=== PATIENT | female | born 1960 | race Caucasian/White ===

== ENCOUNTER 2017-05-04 19:35 | Inpatient (IN) | payer OTHER ==
[2017-05-04 22:10] LABS: ADD MAN DIFF? NO
[2017-05-04 22:13] LABS: BASOPHIL # 0.1 10^3/ul (0.0-0.1); BASOPHILS % 0.5 % (0.0-2.0); EOSINOPHILS # 0.1 10^3/ul (0.0-0.5); EOSINOPHILS % 0.8 % (0.0-7.0); HEMATOCRIT 38.9 % (37.0-47.0); HEMOGLOBIN 13.3 g/dl (12.0-16.0); LYMPHOCYTES % 16.4 % (15.0-51.0); MEAN CORPUSCULAR HEMOGLOBIN 28.1 pg (29.0-33.0); MEAN CORPUSCULAR HGB CONC 34.2 g/dl (32.0-37.0); MEAN CORPUSCULAR VOLUME 82.1 fl (82.0-101.0); MEAN PLATELET VOLUME 10.5 fl (7.4-10.4); MONOCYTES % 7.9 % (0.0-11.0); NEUTROPHIL # 9.1 10^3/ul (1.6-7.5); NEUTROPHILS % 73.7 % (39.0-77.0); PLATELET COUNT 332 10^3/UL (140-415); RED BLOOD COUNT 4.74 10^6/ul (4.20-5.40); RED CELL DISTRIBUTION WIDTH 12.7 % (11.5-14.5)
[2017-05-04 22:13] LABS: WHITE BLOOD COUNT 12.4 10^3/ul (4.8-10.8)
[2017-05-04 22:32] LABS: ALANINE AMINOTRANSFERASE 249 IU/L (13-69); ALBUMIN 4.6 g/dl (3.3-4.9); ALKALINE PHOSPHATASE 332 IU/L (42-121); ASPARTATE AMINO TRANSFERASE 448 IU/L (15-46); BILIRUBIN,INDIRECT 0.1 mg/dl (0-1.1); BILIRUBIN,TOTAL 0.1 mg/dl (0.2-1.3); LIPASE 63 U/L (23-300); TOTAL PROTEIN 7.8 g/dl (6.1-8.1)
[2017-05-04 22:35] LABS: ANION GAP 16 (8-16); BLOOD UREA NITROGEN 15 mg/dl (7-20); CALCIUM 9.8 mg/dl (8.4-10.2); CARBON DIOXIDE 28 mmol/L (21-31); CHLORIDE 102 mmol/L (97-110); CREATININE 0.67 mg/dl (0.44-1.00); GLUCOSE 153 mg/dl (70-220); POTASSIUM 3.6 mmol/L (3.5-5.1); SODIUM 142 mmol/L (135-144)
[2017-05-04] MEDS: LIDOCAINE/MYLANTA 40 ML BTL PO (22:46)
[2017-05-04] MEDS: ASPIRIN 325 MG TAB PO (22:46)
[2017-05-04 22:48] LABS: TROPONIN-I < 0.012 ng/ml (0.00-0.12)
[2017-05-04] MEDS: morphine 4 MG/ML VIAL IV (23:43)
[2017-05-04] MEDS: ONDANSETRON 4 MG INJ IV (23:43)
[2017-05-05] MEDS: metroNIDAZOLE 500 MG/NS (PMX) 100 ML IVPB ×2 (01:14→01:41)
[2017-05-05] MEDS: CEFTRIAXONE 1 GM/50 ML (PMX) 50 ML IVPB (01:15)
[2017-05-05 01:36] LABS: INR 0.95; PROTIME 12.8 Sec (11.9-14.9)
[2017-05-05 01:37] LABS: PARTIAL THROMBOPLASTIN TIME 28.9 Sec (25.0-35.0)
[2017-05-05] MEDS: ONDANSETRON 4 MG INJ IV (01:40)
[2017-05-05] MEDS: METOCLOPRAMIDE 10 MG INJ IV (01:40)
[2017-05-05] MEDS: HYDROmorphONE 0.5 MG/0.5 ML SYG IV (01:40)
[2017-05-05 01:58] LABS: LACTIC ACID 2.3 mmol/L (0.5-2.0)
[2017-05-05] MEDS ORDERED: NACL 0.9% 3 ML SYG IV (02:30)
[2017-05-05] MEDS ORDERED: ONDANSETRON 4 MG INJ IV (02:30)
[2017-05-05 03:01] LABS: LACTIC ACID 2.2 mmol/L (0.5-2.0)
[2017-05-05] MEDS: DEXTROSE 5%-0.45% NACL 1,000 ML IV ×2 (03:07→14:24)
[2017-05-05 04:46] LABS: ADD MAN DIFF? NO
[2017-05-05 04:51] LABS: WHITE BLOOD COUNT 5.8 10^3/ul (4.8-10.8)
[2017-05-05 04:51] LABS: BASOPHILS % 0.5 % (0.0-2.0); EOSINOPHILS % 0.3 % (0.0-7.0); HEMATOCRIT 36.8 % (37.0-47.0); HEMOGLOBIN 12.5 g/dl (12.0-16.0); LYMPHOCYTES # 1.6 10^3/ul (0.8-2.9); LYMPHOCYTES % 27.1 % (15.0-51.0); MEAN CORPUSCULAR VOLUME 82.5 fl (82.0-101.0); MEAN PLATELET VOLUME 10.2 fl (7.4-10.4); MONOCYTE # 0.4 10^3/ul (0.3-0.9); MONOCYTES % 6.7 % (0.0-11.0); NEUTROPHIL # 3.8 10^3/ul (1.6-7.5); NEUTROPHILS % 64.9 % (39.0-77.0); PLATELET COUNT 304 10^3/UL (140-415); RED BLOOD COUNT 4.46 10^6/ul (4.20-5.40); RED CELL DISTRIBUTION WIDTH 12.5 % (11.5-14.5)
[2017-05-05 05:15] LABS: LACTIC ACID 1.9 mmol/L (0.5-2.0)
[2017-05-05 05:24] LABS: ALBUMIN 3.9 g/dl (3.3-4.9); ALBUMIN/GLOBULIN RATIO 1.11; ALKALINE PHOSPHATASE 368 IU/L (42-121); ANION GAP 17 (8-16); BILIRUBIN,INDIRECT 0.3 mg/dl (0-1.1); BILIRUBIN,TOTAL 0.7 mg/dl (0.2-1.3); BLOOD UREA NITROGEN 13 mg/dl (7-20); CALCIUM 9.1 mg/dl (8.4-10.2); CARBON DIOXIDE 26 mmol/L (21-31); CHLORIDE 105 mmol/L (97-110); CREATININE 0.58 mg/dl (0.44-1.00); GLUCOSE 162 mg/dl (70-220); POTASSIUM 3.8 mmol/L (3.5-5.1); SODIUM 144 mmol/L (135-144); TOTAL PROTEIN 7.4 g/dl (6.1-8.1)
[2017-05-05 05:29] LABS: CREATINE KINASE 22 IU/L (23-200)
[2017-05-05 05:30] LABS: CK INDEX 1.7; CK-MB 0.38 ng/ml (0.0-2.4)
[2017-05-05 05:53] LABS: TROPONIN-I < 0.012 ng/ml (0.00-0.12)
[2017-05-05] MEDS: PIPER-TAZO 3.375 GM IV (PMX) 100 ML IVPB ×3 (05:59→18:52)
[2017-05-05 09:39] LABS: ALANINE AMINOTRANSFERASE 1780 IU/L (13-69)
[2017-05-05] MEDS: morphine 2 MG INJ IV ×3 (09:52→18:52)
[2017-05-05 10:31] LABS: CREATINE KINASE 28 IU/L (23-200)
[2017-05-05 10:42] LABS: CK INDEX 1.2; CK-MB 0.34 ng/ml (0.0-2.4); TROPONIN-I < 0.012 ng/ml (0.00-0.12)
[2017-05-05 17:13] LABS: ACETAMINOPHEN < 10.0 ug/ml (10.0-30.0)
[2017-05-05 17:54] LABS: HEPATITIS B SURFACE ANTIBODY POSITIVE (NEGATIVE)
[2017-05-05 19:15] LABS: HEPATITIS B SURFACE ANTIGEN NEGATIVE (NEGATIVE)
[2017-05-05 19:59] LABS: HEPATITIS B CORE ANTIBODY REACTIVE (NEGATIVE); HEPATITIS C VIRAL ANTIBODY NEGATIVE (NEGATIVE)
[2017-05-06] MEDS: DEXTROSE 5%-0.45% NACL 1,000 ML IV ×5 (00:32→23:18)
[2017-05-06] MEDS: PIPER-TAZO 3.375 GM IV (PMX) 100 ML IVPB ×5 (00:32→23:18)
[2017-05-06 05:11] LABS: ADD MAN DIFF? NO; BASOPHILS % 0.8 % (0.0-2.0); EOSINOPHILS # 0.3 10^3/ul (0.0-0.5); EOSINOPHILS % 5.7 % (0.0-7.0); HEMATOCRIT 36.5 % (37.0-47.0); HEMOGLOBIN 12.3 g/dl (12.0-16.0); LYMPHOCYTES # 1.8 10^3/ul (0.8-2.9); LYMPHOCYTES % 36.5 % (15.0-51.0); MEAN CORPUSCULAR HEMOGLOBIN 27.9 pg (29.0-33.0); MEAN CORPUSCULAR HGB CONC 33.7 g/dl (32.0-37.0); MEAN CORPUSCULAR VOLUME 82.8 fl (82.0-101.0); MEAN PLATELET VOLUME 10.1 fl (7.4-10.4); MONOCYTE # 0.4 10^3/ul (0.3-0.9); MONOCYTES % 7.1 % (0.0-11.0); NEUTROPHIL # 2.4 10^3/ul (1.6-7.5); NEUTROPHILS % 49.3 % (39.0-77.0); PLATELET COUNT 296 10^3/UL (140-415); RED BLOOD COUNT 4.41 10^6/ul (4.20-5.40); RED CELL DISTRIBUTION WIDTH 13.1 % (11.5-14.5)
[2017-05-06 05:11] LABS: WHITE BLOOD COUNT 4.9 10^3/ul (4.8-10.8)
[2017-05-06 05:37] LABS: ANION GAP 13 (8-16); BLOOD UREA NITROGEN 6 mg/dl (7-20); CALCIUM 9.3 mg/dl (8.4-10.2); CARBON DIOXIDE 28 mmol/L (21-31); CHLORIDE 106 mmol/L (97-110); CREATININE 0.56 mg/dl (0.44-1.00); GLUCOSE 121 mg/dl (70-220); MAGNESIUM 1.9 mg/dl (1.7-2.5); PHOSPHORUS 3.6 mg/dl (2.5-4.9); POTASSIUM 3.4 mmol/L (3.5-5.1); SODIUM 144 mmol/L (135-144)
[2017-05-06 13:28] LABS: ALBUMIN 3.7 g/dl (3.3-4.9); ALKALINE PHOSPHATASE 399 IU/L (42-121); BILIRUBIN,INDIRECT 0.6 mg/dl (0-1.1); BILIRUBIN,TOTAL 0.6 mg/dl (0.2-1.3); TOTAL PROTEIN 7.2 g/dl (6.1-8.1)
[2017-05-06 13:53] LABS: ALANINE AMINOTRANSFERASE 1329 IU/L (13-69); ASPARTATE AMINO TRANSFERASE 748 IU/L (15-46)
[2017-05-06] MEDS ORDERED: morphine LIQ (10 MG/5 ML) CUP PO (17:00)
[2017-05-07] MEDS: ZOLPIDEM 5 MG TAB PO (01:55)
[2017-05-07 05:38] LABS: ADD MAN DIFF? NO
[2017-05-07] MEDS: PIPER-TAZO 3.375 GM IV (PMX) 100 ML IVPB ×3 (05:43→17:38)
[2017-05-07 05:49] LABS: WHITE BLOOD COUNT 7.1 10^3/ul (4.8-10.8)
[2017-05-07 05:50] LABS: BASOPHIL # 0.1 10^3/ul (0.0-0.1); BASOPHILS % 0.8 % (0.0-2.0); EOSINOPHILS # 0.4 10^3/ul (0.0-0.5); EOSINOPHILS % 5.4 % (0.0-7.0); HEMATOCRIT 35.4 % (37.0-47.0); HEMOGLOBIN 11.9 g/dl (12.0-16.0); LYMPHOCYTES # 2.6 10^3/ul (0.8-2.9); MEAN CORPUSCULAR HGB CONC 33.6 g/dl (32.0-37.0); MEAN CORPUSCULAR VOLUME 83.3 fl (82.0-101.0); MONOCYTE # 0.6 10^3/ul (0.3-0.9); MONOCYTES % 8.2 % (0.0-11.0); NEUTROPHIL # 3.4 10^3/ul (1.6-7.5); NEUTROPHILS % 47.8 % (39.0-77.0); PLATELET COUNT 323 10^3/UL (140-415); RED BLOOD COUNT 4.25 10^6/ul (4.20-5.40); RED CELL DISTRIBUTION WIDTH 13.1 % (11.5-14.5)
[2017-05-07 06:06] LABS: ALANINE AMINOTRANSFERASE 795 IU/L (13-69); ALBUMIN 3.9 g/dl (3.3-4.9); ALKALINE PHOSPHATASE 305 IU/L (42-121); ANION GAP 13 (8-16); ASPARTATE AMINO TRANSFERASE 204 IU/L (15-46); BILIRUBIN,INDIRECT 0.2 mg/dl (0-1.1); BILIRUBIN,TOTAL 0.2 mg/dl (0.2-1.3); BLOOD UREA NITROGEN 5 mg/dl (7-20); CALCIUM 9.3 mg/dl (8.4-10.2); CARBON DIOXIDE 28 mmol/L (21-31); CHLORIDE 106 mmol/L (97-110); CREATININE 0.58 mg/dl (0.44-1.00); GLUCOSE 111 mg/dl (70-220); POTASSIUM 3.4 mmol/L (3.5-5.1); SODIUM 144 mmol/L (135-144); TOTAL PROTEIN 7.1 g/dl (6.1-8.1)
[2017-05-07 06:07] LABS: MAGNESIUM 1.9 mg/dl (1.7-2.5)
[2017-05-07 11:11] LABS: MITOCHONDRIAL TB NEGATIVE (NEGATIVE); SMOOTH MUSCLE AB SCREEN NEGATIVE (NEGATIVE)
[2017-05-07 11:57] LABS: ANA SCREEN NEGATIVE (NEGATIVE)
[2017-05-07] MEDS: DEXTROSE 5%-0.45% NACL 1,000 ML IV (12:03)
[2017-05-07] MEDS: POTASSIUM CHLORIDE (SR) 20 MEQ TAB PO (14:57)
== END 2017-05-07 20:55 | disposition home or self-care (01) | DRG 445 ==
LOC: E/R 19:35 → MS1 05-06 20:45
DX: K80.20 Calculus of gallbladder without cholecystitis without obstruction (principal); B19.10 Unspecified viral hepatitis B without hepatic coma; N20.0 Calculus of kidney; K43.9 Ventral hernia without obstruction or gangrene; K40.90 Unilateral inguinal hernia, without obstruction or gangrene, not specified as recurrent; E66.9 Obesity, unspecified; Z68.32 Body mass index [BMI] 32.0-32.9, adult
CPT/HCPCS: 36415; 71045; 74018; 74176; 74181; 76705; 80048; 80053; 80076; 80306; 82550; 82553; 83605; 83690; 83735; 84100; 84484; 85025; 85610; 85730; 86038; 86255; 86704; 86706; 86709; 86803; 87040; 87086; 87340; 93005; 96374; 96375; 96376; 99291-25

== ENCOUNTER 2018-03-17 14:32 | Emergency (ER) | payer OTHER | END 2018-03-17 15:02 | disposition home or self-care (01) | LOC: FTE 14:32 | DX: S31.809A Unspecified open wound of unspecified buttock, initial encounter (principal); X58.XXXA Exposure to other specified factors, initial encounter; Y92.9 Unspecified place or not applicable | CPT/HCPCS: 99283; Z7502 ==

== ENCOUNTER 2018-07-19 11:50 | Emergency (ER) | payer OTHER ==
[2018-07-19] MEDS: HYDROCODONE/APAP (5/325) TAB PO (13:34)
[2018-07-19] MEDS: LORAZEPAM 0.5 MG TAB PO (15:39)
== END 2018-07-19 15:43 | disposition home or self-care (01) ==
LOC: FTE 11:50
DX: S32.2XXA Fracture of coccyx, initial encounter for closed fracture (principal); W10.9XXA Fall (on) (from) unspecified stairs and steps, initial encounter; Y92.9 Unspecified place or not applicable
CPT/HCPCS: 72040; 72220; 73510; 99284-25